=== PATIENT | male | born 1940 | race Caucasian/White ===

== ENCOUNTER 2021-08-17 18:07 | Emergency (ER) | payer OTHER ==
--- OUTSIDE RECORDS SUMMARY | 2021-08-17 18:09 | XMS REPORT | Continuity of Care Document ---
:1940 Author Organization [facility] t Address [address] [place] [address] Care Team Providers Name Role Phone [phone] Primary Care Physician Unavailable Jennifer BROWNP Attending Clinician JENNIFER Attending Clinician Unavailable ERIS Attending Clinician Unavailable Eris CONNOR Attending Clinician Jayson VILLAREAL Attending Clinician JAYSON Attending Clinician Unavailable MADDY Attending Clinician Unavailable MD MADDY SSandhya Attending Clinician Unavailable ZARA Attending Clinician Unavailable Maxi VILLAREAL Attending Clinician MADDY Admitting Clinician Unavailable MD MADDY SSandhya Admitting Clinician Unavailable ZARA Admitting Clinician Unavailable Payers Payer Name Policy Type Policy Effective Date Expiration Date Sour ce Number MEDICAREMEDICARE PART [id number] 2006 MD Javy Knott AND 00:00:00 [id number] 2005-P [id number] [facility] [address] [place] [id number] Problems Condition Condition Condition Status Onset Resolution Last Treating Co mments Source Name Details Category Date Date Treatment Clinician Date Dyslipidem Dyslipidem Disease Active Jayy morales 10-22 Assessgaurav Jimenez 00:00: t & Plan: n 00 Formattin g of this note might be different from the original. Last lipid panel on 08/21/2017 showed LDL of 142 and HDL of 51. He reports that he has been placed yesterday by his PCP on a statin the name of which he cannot recall. Therapeut ic lifestyle changes has been discussed at length. Essential Essential Disease Active 2016-06 Last (primary) (primary) 2-13 Assessmen Nikos salinasrso hypertensi hypertensi 00:00: t & Plan: n on on 00 Formattin g of this note might be different from the original. Currently well controlle d. Continue present cardiac medicatio ns. We should be liberal with his blood pressure because of the severe aortic stenosis. 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 I will have the patient undergo a lipid panel check on 7. I have cautioned the patient that in the event that his lipids are abnormal, he may try to make lifestyle modificat ions initially , but he may require initiatio n of statin therapy. He verbalize d a good understan ding of this. Nonrheumat Nonrheumat Disease Active 2015-06 Overview : MD [place] aortic ic aortic 2-14 Formattin A nderso valve valve 00:00: g of this n stenosis stenosis 00 note might be different from the original. Transthor acic echocardi ogram dated 08/21/2017 showed severe valvular aortic stenosis. Calculate d MARIUSZ of 0.90 cm2. Mean gradient across the aortic valve is 40 millimete rs of mercury.L ast Assessmen t & Plan: Formattin g of this note might be different from the original. Patient remains asymptoma tic and has a good functiona l capacity. He now has severe aortic valvular stenosis with an aortic valve area of 0.9 centimete rs squared and a mean gradient of 40. I had discussed at length regarding the signs and symptoms severe aortic stenosis and advised him to let us know once they are experienc ed. We will repeat a transthor acic echocardi ogram in 6 months. Continue present cardiac medicatio ns and patient advised to stay hydrated. Encounter Encounter Disease Active 2015-06 for for 2-14 Anderso preprocedu preprocedu 00:00: n ral ral 00 cardiovasc cardiovasc ular ular examinatio examinatio n n Malignant Malignant Disease Active neoplasm neoplasm - Catrachito o of of 00:00: n prostate prostate 00 Allergies, Adverse Reactions, Alerts This patient has no known allergies or adverse reactions. Family History Family Member Diagnosis Comments Start Date Stop Date Source Natural father -Genitourinary (Bladder, MD Palafox Kidney, Prostate, Testicle) Natural sister Breast cancer MD Holland hernandez Social History Social Habit Start Date Stop Date Quantity Comments Source History of tobacco Current smoker MD Palafox use History [facility] MD Palafox Alcohol Frequency History [facility] MD Palafox Alcohol Std Drinks History [facility] MD Palafox Alcohol Binge Alcohol intake 2016-06-01 2016-06-01 Current drinker of MD Palafox 00:00:00 00:00:00 alcohol (finding) Cigarettes smoked 2015-10-13 2015-10-13 MD Holland hernandez current (pack per 00:00:00 00:00:00 day) - Reported Cigarette 2015-10-13 2015-10-13 MD Palafox pack-years 00:00:00 00:00:00 Tobacco use and 2015-10-13 2015-10-13 Smokeless tobacco MD Palafox exposure 00:00:00 00:00:00 non-user History [facility] 2015-10-13 2015-10-13 1-2 drinks/month Alcohol Comment 00:00:00 00:00:00 Sex Ass[birth year] At [birth year] MD [place] 00:00:00 00:00:00 Smoking Status Start Date Stop Date Source Ex-smoker 2015-10-13 00:00:00 2015-10-13 00:00:00 MD Morfin son Medications Ordered Filled Start Stop Current Ordering Indication Dosage Frequency Signature Comments Components Source Medication Medication Date Date Medication? Clinician (SIG) Name Name losartan 2020- No 100mg Take 100 MD potassium 03-15 mg by Anderso (LOSARTAN 11:42: 00:00 mouth n ORAL) 47 :00 daily. tadalafil 2020- No Erectile 20mg Take 1 M D (CIALIS) 20 03-15 dysfunction tablet (20 Anderso mg tablet 00:00: 05:59 due to mg) by n 00 :00 diseases mouth as classified needed for elsewhere erectile dysfunctio n for up to 90 days. aspirin 81 Yes 81mg Take 81 mg M D mg EC 2-26 by mouth 3 Anderso tablet 19:02: (three) n 33 times a week Saturday, Saturday and Saturday. Reported on 05/30/2016 latanoprost Yes 1[drp] Administer (XALATAN) 08-12 1 drop to Navjot so 0.005% 19:02: both eyes n ophthalmic 33 daily. solution timolol Yes 1[drp] Administer (BETIMOL) 08-12 1-2 drops Navjot so 0.25 % 19:02: into the n ophthalmic 33 left eye solution twice daily. Vital Signs Vital Name Observation Time Observation Value Comments Source Systolic blood pressure 2021-03-15 16:37:56 176 mm[Hg] MD Palafox Diastolic blood pressure 2021-03-15 16:37:56 80 mm[Hg] MD Palafox Heart rate 2021-03-15 16:37:56 55 /min MD Navjot pike Body temperature 2021-03-15 16:36:54 36.22 Coretta MD Nikos kenny Respiratory rate 2021-03-15 16:36:54 18 /min MD Nikos kenny Oxygen saturation in 2021-03-15 16:36:54 98 /min MD Palafox Arterial blood by Pulse oximetry Body height 2021-03-15 16:31:00 182 cm MD Navjot pike Body weight 2021-03-15 16:31:00 81.6 kg MD Navjot pike BMI 2021-03-15 16:31:00 24.63 kg/m2 MD Navjot pike Procedures Procedure Date / Time Performed Performing Clinician [facility] e PROSTATE SPECIFIC ANTIGEN 2021-03-15 17:19:00 Diane Aquino MD TESTOSTERONE LEVEL 2021-03-15 17:19:00 Diane Aquino MD on Plan of Care Planned Activity Planned Date Details Comments Source Future Scheduled Test 2020-12-16 00:00:00 COVID-19 Vaccination (3 MD Palafox - Booster for Moderna series) [code = COVID-19 Vaccination (3 - Booster for Moderna series)] Encounters Start End Encounter Admission Attending Care Care Encounter Source Date/Time Date/Time Type Type Clinicians Facility Department ID 2021-03-16 2021-03-16 Outpatient LETTY RODRIGUEZ MDA MDA [id number] 10:14:00 10:49:40 ALESIA encarnacion 2021-03-15 2021-03-15 Outpatient DIANE DELEON MDA MDA [id number] 09:45:00 23:59:00 Catrachito o alysha 2021-03-15 2021-03-15 Outpatient JED MORA MDA MDA [id number] 11:28:28 12:18:12 Catrachito o alysha 2021-01-10 2021-01-10 Outpatient MADDY [facility] [id number] [place] 00:00:00 00:00:00 NIKITA [address] 2021-01-10 2021-01-10 Outpatient MADDY [facility] [id number] [place] 00:00:00 00:00:00 NIKITA [address] 2020-12-15 2020-12-15 Outpatient [facility] [id number] [place] 00:00:00 00:00:[address] 2020-11-28 2020-11-29 Outpatient MADDY [facility] [id number] [place] 00:00:00 00:00:00 NIKITA [address] 2020-11-24 2020-11-24 Outpatient MADDY [facility] [id number] [place] 00:00:00 00:00:00 NIKTIA [address] 2020-11-17 2020-11-18 Outpatient ZARA [facility]ICH[facility]AS [facility] [id number] [place] 00:00:00 00:00:[address] 2020-11-08 2020-11-08 Outpatient MADDY [facility] [id number] [place] 00:00:00 00:00:00 NIKITA [address] 2020-08-23 2020-08-23 Outpatient MADDY [facility] [id number] [place] 00:00:00 00:00:00 NIKITA [address] 2020-07-19 2020-07-19 Outpatient [facility] [id number] [place] 00:00:00 00:00:[address] 2020-06-21 2020-06-21 Outpatient [facility] [id number] [place] 00:00:00 00:00:[address] 2020-05-03 2020-05-03 Outpatient MADDY [facility] [id number] [place] 00:00:00 00:00:00 NIKITA [address] 2020-05-03 2020-05-03 Outpatient MADDY [facility] [id number] [place] 00:00:00 00:00:00 NIKITA [address] Results Test Description Test Time Test Comments Results Result Comments Source Testosterone Level 2021-03-15 18:40:20 Test Item Value Reference Range Interpretation Comme nts Testoster Tot (test code = 7607) 206 ng/dL 193-740 Reference Ranges: Male: Age 20 - 49 249 - 836 Age >=50 193 - 740 Female: Age 20 - 49 8 - 48 Age >=50 3 - 41 MD PalafoxProstate Specific Antigen (PSA) - [id number] 18:10:54 Test Item Value Reference Range Interpretation Comments PSA (test code = <0.1 0.0-4.0 Results gre ater than 6743) 4519 ng/mL may not be reliable due to matrix effect with ext ended dilution as it exceeds the manufacture r's recommended ugalde it. Caution should be exercised when interpreting redman ch values and done in conjunction wit h clinical context.Testing Performed at [facility], [address], [address], [place] [address] PSA Indication (test Diagnostic code = 9395) MD CaiTqexthhaIOPI-CyE-4 (COVID-19) RNA [Presence] in Respiratory specimen by SHONA with probe [id number] 21:05:29 Test Item Value Reference Range Interpretation Comments SARS-CoV-2 (COVID-19) RNA Not detected Not-Detected [Presence] in Respiratory specimen by SHONA with probe detection (test code = 20876-6) Whether patient is employed in a healthcare setting (test code = 55468-5) Whether the patient has symptoms related to condition of interest (test code = 61860-4) Patient was hospitalized because of this condition (test code = 53230-4) Whether the patient was admitted to intensive care unit (ICU) for condition of interest (test code = 11293-4) Whether patient resides in a congregate care setting (test code = 56735-4) RAD, CHEST, 2 [id number] 22:08:00Reason for Exam:->chest xrayFINAL REPORT EXAMINATION: AP PORTABLE CHEST RADIOGRAPH CLINICAL INDICATION: Aortic valve replacement IMPRESSION: No comparison studies are available. Midline sternotomy, suspected prosthetic cardiac valve and subcutaneous anterior chest wall cardiac monitoring device are noted. No evidence of focal lung consolidation, pulmonary edema or pleural effusion. The heart is borderlineenlarged. Mediastinal contours are sharp. No evidence of an acute osseous abnormality or pneumothorax. Signed: Nikita Sanchez MDReport Verified Date/Time: 01/30/2018 22:08:28 Reading Location: [facility] C013T Transitional Reading Room
--- OUTSIDE RECORDS SUMMARY | 2021-08-17 18:09 | XMS REPORT | Clinical Summary ---
:1940 Author Organization [facility] MD Morfin [facility] Address [address] [place] [address] Care Team Providers Name Role Phone Pernell Farah MD Unavailable Deya Ahuja MD Unavailable MD Jarvis Primary Care Provider Allergies Active Allergy Reactions Severity Noted Date Comments Penicillins Itching 10/13/2015 Medications Medication Sig Dispensed Refills Start Date End Date Status aspirin 81 mg EC Take 81 mg by 0 Active tablet mouth 3 (three) times a week Saturday, Saturday and Saturday. Reported on 05/30/2016 latanoprost Administer 1 0 Activ e (XALATAN) 0.005% drop to both ophthalmic eyes daily. solution timolol Administer 1-2 0 Activ e (BETIMOL) 0.25 % drops into the ophthalmic left eye twice solution daily. losartan Take 100 mg by 0 Disco ntinued potassium mouth daily. 1 (Therap y (LOSARTAN ORAL) comp leted) tadalafil Take 1 tablet 60 tablet 3 03/15/2021 Expir ed (CIALIS) 20 mg (20 mg) by mouth 1 tabletIndication as needed for s: Erectile erectile dysfunction due dysfunction for to diseases up to 90 days. classified elsewhere Active Problems Problem Noted Date Dyslipidemia 10/22/2017 Last Assessment & Plan: Last lipid panel on 08/21/2017 showed LDL of 142 and HDL of 51. He reports that he has been placed yesterday by his PCP on a statin the name of which he cannot recall. Therapeutic lifestyle changes has been discussed at length. Essential (primary) hypertension 05/29/2017 Last Assessment & Plan: Currently well controlled. Continue pres ent cardiac medications. We should be liberal with his blood pressure because of the severe aortic stenosis. Mixed hyperlipidemia 05/29/2017 Last Assessment & Plan: I will have the patient undergo a lipid panel check on 06/12/2017. I have cautioned the patient that in the event that his lipids are abnormal, he may try to make lifestyle modifications initially, but he may require initiation of statin the rapy. He verbalized a good understanding of this. Nonrheumatic aortic valve stenosis 05/30/2016 Overview: Transthoracic echocardiogram dated 018 showed severe valvular aortic stenosis. Calculated MARIUSZ of 0.90 cm2. Mean gradient across the aortic valve is 40 millimeters of mercury. Last Assessment & Plan: Patient remains asymptomatic and has a g ood functional capacity. He now has severe aortic valvular stenosis with an aortic valve area of 0.9 centimeters squared and a mean gradient of 40. I had discuss ed at length regarding the signs and sym ptoms severe aortic stenosis and advised him to let us know once they are experienced. We will repeat a transthoracic echocardiogram in 6 months. Continue present cardiac medications and patient advised to stay hydrated. 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 Office Visit Urology Delfin Tyler, Erectile dysfun ling VILLAREAL due to diseases classified else where (Primary Dx) 03/15/2021 Hospital Encounter Lab Diane Aquino, Adenocarc inoma of [place] prostate 03/15/2021 Travel 08/24/2020 Orders Only Shashi German, SARS-CoV-2 vacc inaannie Sheldon MD after 08/17/2020 Surgical History Surgery Date Site/Laterality Comments TOTAL HIP ARTHROPLASTY 06/17/2003 - 06/16/2004 EXTRACORPOREAL SHOCK WAVE 06/17/2014 - x2 LITHOTRIPSY 06/16/2015 SC PERCUT/NEEDLE 05/30/2016 Perineum/N/A Procedure: FALK SPERINEAL INSERT,PROSTATE,RADIOISOT PLACEM ENT OF NEEDLE INTO PROSTATE FOR TEZ LICATION OF INTERSTITIAL RADIOELEMENT; S urgeon: Charly Sndier MD ; Location: [facility] ; Service: RADIATI ON ONCOLOGY Medical History Medical History Date Comments Hypertension Hypercholesterolemia Glaucoma Nephrolithiasis Aortic valve disorder unspecified Arrhythmia as a child, been st able since Cancer Family History Medical History Relation Name Comments -Genitourinary (Bladder, Kidney, Prostate, Testicle) Father Breast cancer Sister Relation Name Status Comments Father (Age 90) Aortic valve disease, Low grade bladder Ca Mother (Age 85) bowel ischemi a Sister Alive Social History Tobacco Use Types Packs/Day Years Used Date Former Smoker Cigarettes 1958 - 1989 Smokeless Tobacco: Never Used Alcohol Use Standard Drinks/Week Comments Yes 0 (1 standard drink = 0.6 oz pure alcoho l) 1-2 drinks/month Alcohol Habits Answer Date Recorded How often do you have a drink containing alcohol? Not asked How many drinks containing alcohol do you have on a Not aske d typical day when you are drinking? How often do you have six or more drinks on one Not asked occasion? Comment: 1-2 drinks/month 10/13/2015 Sex Assigned at Date Recorded Not on file Job Start Date Occupation Industry Not on file Not on file Not on file Obstetrics History Last Filed Vital Signs Vital Sign Reading Time Taken Comments Blood Pressure 176/80 03/15/2021 11:37 AM CDT Pulse 55 03/15/2021 11:37 AM CDT Temperature 36.2 C (97.2 F) 03/15/2021 11:36 AM CDT Respiratory Rate 18 03/15/2021 11:36 AM CDT Oxygen Saturation 98% 03/15/2021 11:36 AM CDT Inhaled Oxygen Concentration - - Weight 81.6 kg (179 lb 14.3 oz) 03/15/2021 11:31 AM CDT Height 182 cm (5' 11.65") 03/15/2021 11:31 AM CDT Body Mass Index 24.63 03/15/2021 11:31 AM CDT Plan of Treatment Date Type Specialty Care Team Description 03/15/2022 Office Visit Urology Delfin Tyler MD [address] [place], [place] [address] (Wo rk) Health Maintenance Due Date Last Done Comments COVID-19 Vaccination (3 - Booster for 12/16/2020 07/19/2020 , 06/21/2020 Moderna series) Implants Implanted Type Area Mandolin Repair Person Device Shelf Model / Identifier Expiration Date Ser ial / Lot Cardiopulm-12/26/2017 CardioPulm Implanted: 12/26/2017 (Quantity not on file) Description: Bovine heart valve Procedures Procedure Name Priority Date/Time Associated Diagnosis Comme nts TESTOSTERONE LEVEL Routine 03/15/2021 12:19 Adenocarcinoma of Results for this PM CDT prostate procedure are i n the results section. PROSTATE SPECIFIC Routine 03/15/2021 12:19 Adenocarcinoma of R esults for this ANTIGEN PM CDT prostate procedure are i n the results section. after 08/17/2020 Results Testosterone Level (03/15/2021 12:19 PM CDT) Testoster Tot 206 193 - 740 [facility] Comment: ng/dL [facility] Reference Ranges: Male: Age 20 - 49 249 - 836 Age >=50 193 - 740 Female: Age 20 - 49 8 - 48 Age >=50 3 - 41 Specimen Blood Performing Organization Address City/State/ZIP Code Phon e Number [facility] Unless otherwise noted, [address] all lab tests performed by: Division of Pathology and Laboratory Medicine [address] [place] [address] Prostate Specific Antigen (PSA) - Diagnostic (03/15/2021 12:19 PM CDT) PSA <0.1 0.0 - 4.0 ng/mL [facility] Comment: Results greater than 4519 ng /mL may not be reliable due to matrix effect with extended dilution as it exceeds the rotary screen printing machine operator's recommended limit. Caution should be exercised when interpreting such keely ues and done in conjunction with clinical context. Testing Performed at [facility] Lab Rn Cardiac [facility], [address] [facility], [address], [place] [address] PSA Indication Diagnostic [facility] Specimen Blood Performing Organization Address City/State/ZIP Code Phon e Number [facility] [address] [place] [address] [address] after 08/17/2020 Insurance Payer Benefit Plan / Subscriber ID Effective Dates Phone Addre ss Type Group MEDICARE MEDICARE PART [id number] 2006-Denise [phone] CAROLINE Medicare A AND B t 2 SOLUTIONS [address] [place] [address] (Home) [place] [address] CamronLyndon Knott Personal/Family Self [address] [place] [address] (Home) [place] [address] Lyndon Lyon A Personal/Family Self [address] [place] [address] (Home) [place] [address] Care Teams Security Management Specialist Relationship Specialty Start Date End Date Radha Farah PCP - External Follow Up Urology 09/15/15 MD Nikos Gimenez [address] [place], [place] [address] Jeison Ahuja MD PCP - External Primary Internal Medicine 09/15/15 [address] [place] [phone] Sarath Conley MD PCP - General Urology 10/13/15 [address] [place] [address]
--- NOTE | 2021-08-17 19:32 | RAD REPORT ---
EXAM DESCRIPTION: CT - [id number] - 08/17/2021 7:17 pm CLINICAL HISTORY: SMASH INJURY COMPARISON: No comparisons TECHNIQUE: Axial 5 mm thick images of the head were obtained. Axial 2 mm thick images of the cervic al spine were obtained with sagittal and coronal reconstruction images generated and reviewed. All CT scans are performed using dose optimization technique as appropriate and may include automated exposure control or mA/KV adjustment according to patient size. FINDINGS: No intracranial hemorrhage, mass, edema or acute intracranial finding. No suspicion for ac [place] traverse infarction. Mild for age atrophy with ventricles in proportion. Moderate cerebral white matter ch ronic ischemic changes are seen. Mastoid air cells and paranasal sinuses are clear. No globe or orbit abnormality seen. No significant scalp injury identifiable. Cervical body height and alignment are normal. Disc space narrowing is present at all levels. C6-7 di sc space is effaced and there is fusion across the disc space. No fracture or acute bony abnormality. Uncovertebral joint hypertrophy causes mild foraminal stenosis at C2-3 and C3-4. More advanced right foraminal stenosis present at C4-5 with moderate bilateral C5-6 foraminal stenosis. Central canal de tail is inherently limited. No paraspinal mass or hematoma. IMPRESSION: No acute CT Head finding. Chronic ischemic changes are moderate with mild atrophy. Negative CT cervical spine examination for acute or significant finding.
--- NOTE | 2021-08-17 19:38 | ER ---
Nurse's Notes [facility] Name: Lyndon Lyon Age: 81 yrs Sex: Male : 1940 Arrival Date: 08/17/2021 Time: 18:08 Bed DIS4 Private MD: Nikos Ahuja C Diagnosis: Closed head injury, scalp abrasions, neck hematoma Presentation: 08/17 18:20 Chief complaint: Patient states: Slipped on pool side slick surface 30 min [employer]ATING [employer]. Hit ll1 head and neck on concrete. No LOC. Abrasion noted to neck area. No N/V since. Coronavirus screen: Vaccine status: Patient reports receiving the 2nd dose of the covid vaccine. Client denies travel out of the [place] in the last 14 days. At this time, the client does not indicate any symptoms associated with coronavirus-19. Ebola Screen: Patient denies travel to an Ebola-affected area in the 21 days before illness onset. Initial Sepsis Screen: Does the patient meet any 2 criteria? No. Patient's initial sepsis screen is negative. Does the patient have a suspected source of infection? No. Patient's initial sepsis screen is negative. Risk Assessment: Do you want to hurt yourself or someone else? Patient reports no desire to harm self or others. Onset of symptoms was August 17, 2021. 18:20 Method Of Arrival: Ambulatory ll1 18:20 Acuity: CRISTHIAN 3 ll1 Historical: - Allergies: 18:22 PENICILLINS; ll1 - PMHx: 18:22 Hypertensive disorder; ll1 - PSHx: 18:22 hip replacement; pacemaker; aortic heart SX; Tonsillectomy; ll1 - Immunization history:: Client reports receiving the 2nd dose of the Covid vaccine, Flu vaccine is up to date. - Social history:: Smoking status: Patient denies any tobacco usage or history of. - Immunization history: Last tetanus immunization: - up to date. Screenin:51 Abuse screen: Denies threats or abuse. Tuberculosis screening: No symptoms or risk st1 factors identified. 20:53 Nutritional screening: No deficits noted. Fall Risk None identified. No fall in past 12 st1 months (0 pts). No secondary diagnosis (0 pts). No IV (0 pts). Ambulatory Aid- None/Bed Rest/Nurse Assist (0 pts). Gait- Normal/Bed Rest/Wheelchair (0 pts) Mental Status- Oriented to own ability (0 pts). Total Figueredo Fall Scale indicates No Risk (0-24 pts). Primary Survey: 20:50 NO uncontrolled hemorrhage observed. A: The patient is alert. Airway: patent. st1 Breathing/Chest: Respiratory pattern: regular. Circulation: Cardiac rhythm: sinus rhythm. Disability. Disability Alert. Secondary Survey: 20:51 HEENT: No deficits noted. Gastrointestinal: No deficits noted. : No deficits noted. st1 Musculoskeletal: No deficits noted. Assessment: 20:00 General: Appears in no apparent distress. comfortable. General: Behavior is calm, st1 cooperative. Pain: Denies pain. Vital Signs: 18:20 BP 201 / 85; Pulse 73; Resp 16; Temp 97.7; Pulse Ox 98% ; Weight 82.55 kg; Height 5 ft. ll1 11 in. (180.34 cm); Pain 3/10; 20:52 BP 145 / 60; Pulse 65; Resp 18; Temp 98.5(O); Pulse Ox 100% on R/A; Pain 0/10; st1 18:20 Body Mass Index 25.38 (82.55 kg, 180.34 cm) ll1 ED Course: 18:08 Patient arrived in ED. ds1 18:08 Nikos Ahuja MD is Private Physician. ds1 18:22 Triage completed. ll1 18:23 Arm band placed on. ll1 18:37 Russ Toscano MD is Attending Physician. sp3 19:16 CT Head C Spine In Process Unspecified. EDHI 19:37 Nikos Ahuja MD is Referral Physician. sp3 20:51 Patient has correct armband on for positive identification. Call light in reach. st1 20:51 Patient maintains SpO2 saturation greater than 95% on room air. st1 Administered Medications: No medications were administered Outcome: 20:51 Patient left the ED. bb 20:52 Discharge ordered by . st1 Signatures: Dispatcher [employer] [facility] Mikala Oviedo ds1 Jocelin Calle RN RN bb Román Pompa RN RN ll1 Russ Toscano MD MD sp3 Glenys Leon RN RN st1 Corrections: (The following items were deleted from the chart) 18:24 18:20 BP 212 / 92; Pulse 73bpm; Resp 16bpm; Pulse Ox 98%; Temp 97.7F; 82.55 kg; Height ll1 5 ft. 11 in.; BMI: 25.3; Pain 3/10; ll1 20:52 19:37 Discharge ordered by MD. lucas st1 20:53 20:42 Jocelin Calle RN is Primary Nurse. bb st1
--- NOTE | 2021-08-17 19:38 | EDPHYS ---
Physician Documentation [facility] Name: Lyndon Lyon Age: 81 yrs Sex: Male : 1940 Arrival Date: 08/17/2021 Time: 18:08 Bed DIS4 Private MD: Nikos Ahuja C ED Physician Russ Toscano HPI: 08/17 18:49 This 81 yrs old Male presents to ER via Ambulatory with complaints of Fall Injury. sp3 18:49 81-year-old male with history of hypertension and prior aortic valve surgery presents sp3 to the ED status post ground-level mechanical fall on pullback secondary to a wet surface. Patient slipped backwards and fell and injured his upper back and posterior head/occiput. Patient denies LOC and complains only of a mild headache. No neck pain and patient is moving neck in all directions including left and right in flexion and extension.. Historical: - Allergies: 18:22 PENICILLINS; ll1 - PMHx: 18:22 Hypertensive disorder; ll1 - PSHx: 18:22 hip replacement; pacemaker; aortic heart SX; Tonsillectomy; ll1 - Immunization history:: Client reports receiving the 2nd dose of the Covid vaccine, Flu vaccine is up to date. - Social history:: Smoking status: Patient denies any tobacco usage or history of. - Immunization history: Last tetanus immunization: - up to date. ROS: 18:51 Constitutional: Negative for fever, chills, and weight loss, Eyes: Negative for injury, sp3 pain, redness, and discharge, ENT: Negative for injury, pain, and discharge, Cardiovascular: Negative for chest pain, palpitations, and edema, Respiratory: Negative for shortness of breath, cough, wheezing, and pleuritic chest pain, Abdomen/GI: Negative for abdominal pain, nausea, vomiting, diarrhea, and constipation, Back: Negative for injury and pain, MS/Extremity: Negative for injury and deformity, Skin: Negative for injury, rash, and discoloration, Psych: Negative for depression, anxiety, suicide ideation, homicidal ideation, and hallucinations, Allergy/Immunology: Negative for hives, rash, and allergies, Endocrine: Negative for neck swelling, polydipsia, polyuria, polyphagia, and marked weight changes, Hematologic/Lymphatic: Negative for swollen nodes, abnormal bleeding, and unusual bruising. 18:51 All other systems are negative. Exam: 18:51 Constitutional: This is a well developed, well nourished patient who is awake, alert, sp3 and in no acute distress. Eyes: Pupils equal round and reactive to light, extra-ocular motions intact. Lids and lashes normal. Conjunctiva and sclera are non-icteric and not injected. Cornea within normal limits. Periorbital areas with no swelling, redness, or edema. ENT: Nares patent. No nasal discharge, no septal abnormalities noted. External auditory canals are clear. Oropharynx with no redness, swelling, or masses, exudates, or evidence of obstruction, uvula midline. Mucous membranes moist. Chest/axilla: Normal chest wall appearance and motion. Nontender with no deformity. No lesions are appreciated. Cardiovascular: Regular rate and rhythm with a normal S1 and S2. No gallops, murmurs, or rubs. Normal PMI, no JVD. No pulse deficits. Respiratory: Lungs have equal breath sounds bilaterally, clear to auscultation and percussion. No rales, rhonchi or wheezes noted. No increased work of breathing, no retractions or nasal flaring. Abdomen/GI: Soft, non-tender, with normal bowel sounds. No distension or tympany. No guarding or rebound. No evidence of tenderness throughout. Back: No spinal tenderness. No costovertebral tenderness. Full range of motion. Skin: Warm, dry with normal turgor. Normal color with no rashes, no lesions, and no evidence of cellulitis. MS/ Extremity: Pulses equal, no cyanosis. Neurovascular intact. Full, normal range of motion. Neuro: Awake and alert, GCS 15, oriented to person, place, time, and situation. Cranial nerves II-XII grossly intact. Motor strength 5/5 in all extremities. Sensory grossly intact. Cerebellar exam normal. Normal gait. Psych: Awake, alert, with orientation to person, place and time. Behavior, mood, and affect are within normal limits. 18:51 Head/face: Normal exam other than mild hematoma/abrasion at the occiput. No bleeding noted.. 18:51 Neck: No pain on rotation left and right, flexion and extension, axial load, or midline tenderness. Mild ecchymoses/abrasions noted at approximately C7.. Vital Signs: 18:20 BP 201 / 85; Pulse 73; Resp 16; Temp 97.7; Pulse Ox 98% ; Weight 82.55 kg; Height 5 ft. ll1 11 in. (180.34 cm); Pain 3/10; 20:52 BP 145 / 60; Pulse 65; Resp 18; Temp 98.5(O); Pulse Ox 100% on R/A; Pain 0/10; st1 18:20 Body Mass Index 25.38 (82.55 kg, 180.34 cm) ll1 MDM: 18:38 Patient medically screened. sp3 18:52 Data reviewed: vital signs, nurses notes. ED course: 81-year-old male with head injury sp3 with no LOC. CT scan of the head and C-spine ordered and if negative will be discharged home. I am not highly suspicious for critical findings including ICH, C-spine fracture, any other findings.. 19:36 ED course: C-spine and head are negative. Will discharge patient home at this time.. sp3 08/17 18:27 Order name: CT Head C Spine; Complete Time: 19:34 ll1 Administered Medications: No medications were administered Disposition Summary: 08/17/21 19:37 Discharge Ordered Location: Home sp3 Condition: Stable sp3 Diagnosis - Closed head injury, scalp abrasions, neck hematoma sp3 Followup: sp3 - With: Nikos Ahuja MD - When: As needed - Reason: Re-evaluation by your physician Discharge Instructions: - Discharge Summary Sheet sp3 - Head Injury, Adult sp3 Forms: - Medication Reconciliation Form sp3 - Thank You Letter sp3 - Antibiotic Education sp3 - Prescription Opioid Use sp3 Signatures: Dispatcher [employer] ED[facility] Román Pompa, RN RN ll1 Russ Toscano MD MD sp3 Glenys Leon, INOCENCIA RN st1
[2021-08-17 21:12] VITALS: BP 201/85; TEMP 97.7; O2SAT 98
== END 2021-08-17 20:51 | disposition home or self-care (01) ==
LOC: ER 18:07
DX: S00.01XA Abrasion of scalp, initial encounter (principal); S10.93XA Contusion of unspecified part of neck, initial encounter; S09.90XA Unspecified injury of head, initial encounter; W01.0XXA Fall on same level from slipping, tripping and stumbling without subsequent striking against object, initial encounter; I10 Essential (primary) hypertension; Z95.0 Presence of cardiac pacemaker; Z88.0 Allergy status to penicillin
CPT/HCPCS: 70450; 72125; 99284